=== PATIENT | female | born 1980 | race Hispanic/Latino ===

== ENCOUNTER → 2017-08-21 | Outpatient (CLI) | payer OTHER ==
--- NOTE | 2017-08-21 12:58 | Diagnostic Imaging Report ---
PROCEDURE:THORACIC SPINE 2VW COMPARISON:None. INDICATIONS:BACK PAIN FINDINGS:Normal alignment of the thoracic spine. Disc spaces are well preserved. No anterior or posterior disc osteophytes. Vertebral body heights are preserved. Right quadrant cholecystectomy clips. CONCLUSION:Normal thoracic spine. Dictated by: Aman Vick M.D. on 08/21/2017 at 13:00 Electronically approved by: Aman Vick M.D. on 08/21/2017 at 13:00
== END ==
LOC: RAD 11:58
PROVIDERS: ATTEND Family Medicine
DX: M54.6 Pain in thoracic spine (principal)
CPT/HCPCS: 72070